=== PATIENT | female | born 1995 | race American Indian/Alaskan Native ===

== ENCOUNTER 2017-02-21 06:32 | Emergency (ER) | payer MEDICAID, OTHER ==
[2017-02-21 06:32] VITALS: BMI 28.4
[2017-02-21 06:49] VITALS: BP 121/73; PULSE 87; RESP 14; TEMP 98.9; O2SAT 100
[2017-02-21] MEDS ORDERED: Naproxen 550 mg Tab PO STA (07:38)
--- NOTE | 2017-02-21 07:41 | C.PDOC ---
History Of Present Illness 21-year-old female, PMHx includes Asthma, presents to the emergency department with complaints of right periorbital swelling. Patient states that yesterday she noticed swelling and pain at the right eyebrow, and then this morning the eyelid/periorbital area was swollen. Patient is unsure of whether it started as a bug bite or a pimple. She denies trauma/injuries, pain with EOM movement , eye discharge, visual changes, fever, URI symptoms. Time Seen by Provider: 02/21/17 07:21 Chief Complaint (Nursing): Eye Problem History Per: Patient History/Exam Limitations: no limitations Current Symptoms Are (Timing): Still Present Severity: Mild Past Medical History Reviewed: Historical Data, Nursing Documentation, Vital Signs Vital Signs: Last Vital Signs Temp 98.9 F 02/21/17 06:45 Pulse 87 02/21/17 06:45 Resp 14 02/21/17 06:45 BP 121/73 02/21/17 06:45 Pulse Ox 100 02/21/17 11:58 - Medical History PMH: Asthma - [facility] Procedures EPISIOTOMY (06/02/15) Family History: States: No Known Family Hx - Social History Hx Tobacco Use: No Hx Alcohol Use: No Hx Substance Use: No - Immunization History Hx Tetanus Toxoid Vaccination: Yes Hx Influenza Vaccination: No Hx Pneumococcal Vaccination: No Review Of Systems Except As Marked, All Systems Reviewed And Found Negative. Constitutional: Negative for: Fever, Chills Eyes: Positive for: Other (periorbital swelling). Negative for: Vision Change Respiratory: Negative for: Shortness of Breath Gastrointestinal: Negative for: Nausea Skin: Negative for: Rash Neurological: Negative for: Headache, Dizziness Physical Exam - Physical Exam Appears: Well, Non-toxic, No Acute Distress Skin: Warm, Dry, No Rash Head: Atraumatic, Normacephalic Eye(s): bilateral: Normal Inspection, PERRL, right: Other (small pustule at R eyebrow w/ mild erythema and swelling of upper eyelid and carmelo-orbital area. no fluctuance/induration) Nose: Normal, No Discharge Oral Mucosa: Moist Lips: Normal Appearing, No Swelling Neck: Normal, Normal ROM Cardiovascular: Rhythm Regular Respiratory: Normal Breath Sounds, No Rales, No Rhonchi, No Wheezing Neurological/Psych: Oriented x3 Gait: Steady ED Course And Treatment O2 Sat by Pulse Oximetry: 100 (RA) Pulse Ox Interpretation: Normal Progress Note: Patient given PO Naprosyn and Clindamyin in ED, as well as Rx for same. She was instructed to follow up with PMD/clinic in 1-2 days, and understands she should return to ED if symptoms worsen. Reevaluation Time: 07:50 Reassessment Condition: Improved Disposition Counseled Patient/Family Regarding: Diagnosis, Need For Followup, Rx Given - Disposition Referrals: [facility] at [facility] [Outside] Disposition: HOME/ ROUTINE Disposition Time: 07:50 Condition: STABLE Additional Instructions: FOLLOW UP WITH YOUR DOCTOR/CLINIC IN 1-2 DAYS USE MEDICATIONS DIRECTED RETURN TO ER IF SYMPTOMS WORSEN Prescriptions: Clindamycin [Cleocin] 300 mg PO TID #21 cap Lactobacillus Combination No.4 [Probiotic] 1 each PO DAILY #7 capsule Naproxen [Naprosyn Tab] 375 mg PO BID PRN #15 tab PRN Reason: pain Instructions: Periorbital Cellulitis in Adults (ED) Print Language: BURKINAN - POA Present On Arrival: None - Clinical Impression Clinical Impression: Periorbital cellulitis of right eye - Scribe Statement The provider has reviewed the documentation as recorded by the Miguelina Smith All medical record entries made by the [employer] were at my direction and personally dictated by me. I have reviewed the chart and agree that the record accurately reflects my personal performance of the history, physical exam, medical decision making, and the department course for this patient. I have also personally directed, reviewed, and agree with the discharge instructions and disposition.
[2017-02-21] MEDS ORDERED: Naproxen 550 mg Tab PO ONE (07:47)
== END 2017-02-21 07:51 | disposition home or self-care (01) ==
LOC: C.ER 06:32
DX: L03.213 Periorbital cellulitis (principal)

== ENCOUNTER 2017-03-21 09:43 | Emergency (ER) | payer OTHER ==
[2017-03-21 09:43] VITALS: BMI 28.4
[2017-03-21] MEDS ORDERED: Albuterol-Ipratrop 3 mg / 0.5 (3 ml) UD ONE ×2 (09:46→10:53)
[2017-03-21] MEDS: Albuterol-Ipratrop 3 mg / 0.5 (3 ml) UD IH SCH ×2 (10:45→10:56)
--- NOTE | 2017-03-21 10:55 | C.PDOC ---
History Of Present Illness Patient is a 21 y/o female, whose PMHx includes asthma, presents to the ED for evaluation of increased shortness of breath associated with cough for the last 2 weeks. Pt reports using her Albuterol inhaler much more than usual for the past 2 weeks. Pt states she didn't have her nebulizer with her today, which prompted her to visit ED. Notes that she feels better in cold weather, but her symptoms have worsened this season. Otherwise, denies any fever, chills, nausea , vomiting, chest pain, palpitations, or any other associated symptoms at this time. Time Seen by Provider: 03/21/17 10:00 Chief Complaint (Nursing): Shortness Of Breath History Per: Patient History/Exam Limitations: no limitations Onset/Duration Of Symptoms: Days (2 weeks) Current Symptoms Are (Timing): Still Present Exacerbating Factor(s): Coughing Current Respiratory Medications: Albuterol Severity: Moderate Associated Symptoms: denies: Fever, Chills, Sweating, Chest Pain Recent travel outside of the [place]: No Past Medical History Reviewed: Historical Data, Nursing Documentation, Vital Signs Vital Signs: Last Vital Signs Temp 98.4 F 03/21/17 11:32 Pulse 97 H 03/21/17 11:32 Resp 20 03/21/17 11:32 BP 108/67 03/21/17 11:32 Pulse Ox 99 03/21/17 11:32 - Medical History PMH: Asthma - [facility] Procedures EPISIOTOMY (06/02/15) Family History: States: Unknown Family Hx - Social History Hx Tobacco Use: No Hx Alcohol Use: No Hx Substance Use: No - Immunization History Hx Tetanus Toxoid Vaccination: Yes Review Of Systems Except As Marked, All Systems Reviewed And Found Negative. Constitutional: Negative for: Fever, Chills Cardiovascular: Negative for: Chest Pain, Palpitations, Light Headedness Respiratory: Positive for: Cough, Shortness of Breath. Negative for: Hemoptysis , Sputum Gastrointestinal: Negative for: Nausea, Vomiting, Abdominal Pain Neurological: Negative for: Headache, Dizziness Physical Exam - Physical Exam Appears: Non-toxic, No Acute Distress Skin: Normal Color, Warm, Dry Head: Atraumatic, Normacephalic Neck: Normal ROM, Supple Chest: Symmetrical, No Tenderness Cardiovascular: Rhythm Regular, No Murmur Respiratory: No Rales, No Rhonchi, Wheezing (diffuse) Extremity: Normal ROM, No Pedal Edema Neurological/Psych: Oriented x3, Normal Speech, Normal Cognition ED Course And Treatment O2 Sat by Pulse Oximetry: 98 (on RA) Pulse Ox Interpretation: Normal Progress Note: Pt was given nebulizer treatments, and Prednisone in the ER. Medical Decision Making Medical Decision Making: Post treatments feeling better Ambulated with out SOB Lungs clear Stable for dc with meds Disposition - Disposition Disposition: HOME/ ROUTINE Disposition Time: 12:21 Condition: GOOD Additional Instructions: Return to the ED for any new or worsening symptoms Prescriptions: Albuterol 0.083% [Albuterol Sulfate 3 Ml] 3 ml IH QID #100 neb Budesonide/Formoterol Fumarate [Symbicort] 2 puff IH BID #1 aer Prednisone 1 tab PO DAILY #4 tablet Instructions: Asthma (ED) - Clinical Impression Clinical Impression: Asthma - Scribe Statement The provider has reviewed the documentation as recorded by the Scribe Lisa Purcell All medical record entries made by the Scribe were at my direction and personally dictated by me. I have reviewed the chart and agree that the record accurately reflects my personal performance of the history, physical exam, medical decision making, and the department course for this patient. I have also personally directed, reviewed, and agree with the discharge instructions and disposition.
[2017-03-21 11:33] VITALS: BP 108/67; PULSE 97; RESP 20; TEMP 98.4
[2017-03-21 12:25] VITALS: O2SAT 98
== END 2017-03-21 12:38 | disposition home or self-care (01) ==
LOC: C.ER 09:43
DX: J45.909 Unspecified asthma, uncomplicated (principal)

== ENCOUNTER 2017-12-14 05:20 | Emergency (ER) | payer OTHER ==
[2017-12-14 05:21] VITALS: BMI 28.4
[2017-12-14] MEDS ORDERED: Albuterol-Ipratrop 3 mg / 0.5 (3 ml) UD ONE ×2 (05:27→06:05)
--- NOTE | 2017-12-14 05:53 | C.PDOC ---
History Of Present Illness Pt presents with shortness of breath, wheezing. ran out of nembs at home. No f/ c/n/v. Speaking in complete sentences Time Seen by Provider: 12/14/17 05:52 Chief Complaint (Nursing): Shortness Of Breath History/Exam Limitations: no limitations Onset/Duration Of Symptoms: Hrs Current Symptoms Are (Timing): Still Present Initiating Event: Upper Respiratory Illness, Out Of Medications Exacerbating Factor(s): Coughing Current Respiratory Medications: See Home Med List Severity: Moderate Pain Scale Rating Of: 4 Associated Symptoms: denies: Fever, Chills Reports Recently: Treated By A Physician Recent travel outside of the [place]: No Additional History Per: Patient Past Medical History Reviewed: Historical Data, Nursing Documentation, Vital Signs Vital Signs: Last Vital Signs Temp 98.4 F 12/14/17 05:31 Pulse 117 H 12/14/17 05:31 Resp 18 12/14/17 05:46 BP 122/72 12/14/17 05:31 Pulse Ox 97 12/14/17 06:01 - Medical History PMH: Asthma Denies: Chronic Kidney Disease Surgical History: Denies: Appendectomy, Back Surgery, CABG, Carotid Endarterectomy, Cholecystectomy, Coronary Stent, Endoscopy, Tonsillectomy - [facility] Procedures EPISIOTOMY (06/02/15) Family History: States: No Known Family Hx, Unknown Family Hx - Social History Hx Tobacco Use: No Hx Alcohol Use: No Hx Substance Use: No - Immunization History Hx Tetanus Toxoid Vaccination: No Hx Influenza Vaccination: No Hx Pneumococcal Vaccination: No Review Of Systems Constitutional: Negative for: Fever, Chills ENT: Negative for: Throat Pain Cardiovascular: Negative for: Chest Pain Respiratory: Positive for: Shortness of Breath, Wheezing Gastrointestinal: Negative for: Nausea, Vomiting Musculoskeletal: Negative for: Back Pain Skin: Negative for: Rash Neurological: Negative for: Weakness Psych: Negative for: Anxiety Physical Exam - Physical Exam Appears: Non-toxic Skin: Warm, Dry Eye(s): bilateral: Normal Inspection Oral Mucosa: Moist Neck: Supple Chest: Symmetrical Cardiovascular: Rhythm Regular Respiratory: No Rales, No Rhonchi, Wheezing Gastrointestinal/Abdominal: Soft, No Tenderness, No Distention Back: Normal Inspection Extremity: Normal ROM Extremity: Bilateral: Atraumatic Neurological/Psych: Oriented x3, Normal Speech Gait: Steady ED Course And Treatment O2 Sat by Pulse Oximetry: 97 Pulse Ox Interpretation: Normal Reevaluation Time: 06:40 Reassessment Condition: Improved Disposition Counseled Patient/Family Regarding: Studies Performed, Diagnosis, Need For Followup, Rx Given - Disposition Referrals: [facility] [Outside] [facility] [Outside] Disposition: HOME/ ROUTINE Disposition Time: 05:53 Condition: FAIR Additional Instructions: Please return if symptoms recur Prescriptions: Albuterol HFA [Ventolin HFA 90 mcg/actuation (8 g)] 2 puff IH [id number] #1 puff Azithromycin [Zithromax [place]] 500 mg PO DAILY #3 tablet Prednisone [Deltasone] 20 mg PO DAILY #5 tablet Instructions: Asthma, Adult (DC) Forms: [employer] (Frisian) - Clinical Impression Clinical Impression: Exacerbation of asthma
[2017-12-14] MEDS: Albuterol-Ipratrop 3 mg / 0.5 (3 ml) UD IH SCH (06:45)
[2017-12-14 07:13] VITALS: BP 132/65; PULSE 100; RESP 16; TEMP 98.5; O2SAT 96
== END 2017-12-14 07:26 | disposition home or self-care (01) ==
LOC: C.ER 05:20
DX: J45.901 Unspecified asthma with (acute) exacerbation (principal)

== ENCOUNTER 2018-02-10 06:22 | Emergency (ER) | payer OTHER ==
[2018-02-10 06:22] VITALS: BMI 28.4
[2018-02-10] MEDS ORDERED: Albuterol-Ipratrop 3 mg / 0.5 (3 ml) UD ONE ×2 (06:29→06:50)
--- NOTE | 2018-02-10 06:44 | C.PDOC ---
Time Seen by Provider: 02/10/18 06:41 Chief Complaint (Nursing): Shortness Of Breath History/Exam Limitations: no limitations Onset/Duration Of Symptoms: Days Current Symptoms Are (Timing): Still Present Initiating Event: Out Of Medications Exacerbating Factor(s): Coughing Current Respiratory Medications: See Home Med List Severity: Moderate Pain Scale Rating Of: 4 Associated Symptoms: denies: Fever, Chills Reports Recently: Treated By A Physician Recent travel outside of the [place]: No Additional History Per: Patient Past Medical History Reviewed: Historical Data, Nursing Documentation, Vital Signs Vital Signs: Last Vital Signs Temp 98.1 F 02/10/18 06:34 Pulse 97 H 02/10/18 06:34 Resp 20 02/10/18 06:34 BP 106/70 02/10/18 06:34 Pulse Ox 100 02/10/18 06:34 - Medical History PMH: Asthma Denies: Chronic Kidney Disease Surgical History: Denies: Appendectomy, Back Surgery, CABG, Carotid Endarterectomy, Cholecystectomy, Coronary Stent, Endoscopy, Tonsillectomy - [facility] Procedures EPISIOTOMY (06/02/15) Family History: States: No Known Family Hx - Social History Hx Tobacco Use: No Hx Alcohol Use: No Hx Substance Use: No - Immunization History Hx Tetanus Toxoid Vaccination: No Hx Influenza Vaccination: No Hx Pneumococcal Vaccination: No Review Of Systems ENT: Negative for: Throat Pain Cardiovascular: Negative for: Chest Pain Respiratory: Positive for: Wheezing. Negative for: Shortness of Breath Gastrointestinal: Negative for: Nausea, Abdominal Pain Musculoskeletal: Negative for: Back Pain Skin: Negative for: Rash Neurological: Negative for: Weakness Psych: Negative for: Anxiety Physical Exam - Physical Exam Appears: Non-toxic, No Acute Distress Skin: Warm, Dry Eye(s): bilateral: Normal Inspection Neck: Supple Chest: Symmetrical Cardiovascular: Rhythm Regular Respiratory: No Rales, No Rhonchi, Wheezing Gastrointestinal/Abdominal: Soft, No Tenderness Neurological/Psych: Oriented x3 Gait: Steady ED Course And Treatment O2 Sat by Pulse Oximetry: 100 Pulse Ox Interpretation: Normal Disposition Counseled Patient/Family Regarding: Studies Performed, Diagnosis, Need For Followup - Disposition Referrals: [facility] at [facility] [Outside] Disposition: HOME/ ROUTINE Disposition Time: 06:41 Condition: FAIR Prescriptions: Albuterol Sulfate [Ventolin Hfa] 0.09 mg IH QID PRN #1 ml PRN Reason: Wheezing Albuterol/Ipratropium [Duoneb 3 MG/3 Ml-0.5 MG/3 Ml 3 Ml] 3 ml IH QID PRN #50 neb PRN Reason: Wheezing Prednisone [Deltasone] 20 mg PO DAILY #5 tablet Instructions: Asthma, Adult (DC) - Clinical Impression Clinical Impression: Exacerbation of asthma
[2018-02-10] MEDS: Albuterol-Ipratrop 3 mg / 0.5 (3 ml) UD IH SCH ×3 (06:49→07:05)
[2018-02-10 07:17] VITALS: BP 125/52; PULSE 93; RESP 97; TEMP 98.2; O2SAT 99
== END 2018-02-10 07:17 | disposition home or self-care (01) ==
LOC: C.ER 06:22
DX: J45.901 Unspecified asthma with (acute) exacerbation (principal)